=== PATIENT | female | born 1945 | race Caucasian/White ===

== ENCOUNTER 2018-08-06 19:55 | Emergency (ER) | payer MEDICARE, MEDICAID ==
[~2018-08-06] VITALS: Ht 154.9 cm; Wt 77.0 kg
[2018-08-06 20:35] VITALS: BP 132/63
[2018-08-06] MEDS ORDERED: dexamethasone sod phosphate 10mg/ml inj IM STA (22:25)
[2018-08-06] MEDS ORDERED: AZIT-63 PO (22:26)
== END 2018-08-06 22:54 | disposition home or self-care (01) ==
LOC: ER 19:55
DX: J02.9 Acute pharyngitis, unspecified (principal); J32.9 Chronic sinusitis, unspecified; I10 Essential (primary) hypertension; J45.909 Unspecified asthma, uncomplicated; E11.9 Type 2 diabetes mellitus without complications; Z98.51 Tubal ligation status; Z88.6 Allergy status to analgesic agent
CPT/HCPCS: 96372; 99283; J1100